=== PATIENT | female | born 1960 | race Caucasian/White ===

== ENCOUNTER 2016-12-18 08:36 | Emergency (ER) | payer OTHER, BC ==
--- NOTE | 2016-12-18 08:49 | EDM.PDOC ---
ED HPI GENERAL MEDICAL PROBLEM - General Chief Complaint: Back Pain or Injury Stated Complaint: BACK PAIN Time Seen by Provider: 12/18/16 08:59 Source of Information: Reports: Patient History Limitations: Reports: No Limitations - History of Present Illness INITIAL COMMENTS - FREE TEXT/NARRATIVE: 55-year-old female presents to the ED with acute low back pain. She has some intermittent problems with low back pain but acutely worse today. 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 She does a lot of bending over twisting and turning and no specific injury occurred in the workplace that she could identify such as a slip or fall. Pain is confined primarily to her lower back but radiates up into the upper back. It does not radiate into the SI joints but talk or down the legs. She has taken no medications for this pain this morning as she is on other meds and did wasn't sure that would mix and match. She also has a productive sounding cough for the last part of the week. No associated fever or chills. No plaque problem with her bowel or bladder control. Onset: Today, Other (Has issues with low back pain most days but much worse today) Onset Date: 12/18/16 Onset Time: 07:30 Duration: Hour(s): Location: Reports: Back (Diffuse pain low back with radiation up into the upper back on the left side as compared to the right.) Quality: Reports: Ache, Sharp, Stabbing Severity: Moderate Improves with: Reports: Rest Worsens with: Reports: Movement Context: Reports: Activity, Other (Does a lot of lifting pushing and cleaning bending over a repetitive movements in the workplace.). Denies: Exercise, Lifting, Sick Contact, Trauma Associated Symptoms: Reports: Cough, cough w sputum (Does have a productive sounding cough). 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) (Taken no medication.) - Related Data Allergies Allergy/AdvReac Type Severity Reaction Status Date / Time prednisone Allergy Tremors Verified 01/15/16 06:19 Home Meds: Home Meds Amoxicillin 875 mg PO BID #20 tab 01/15/16 [Rx] Omeprazole 20 mg PO DAILY #30 cap.cr 01/15/16 [Rx] Sucralfate [Carafate] 1 gm PO QIDACANDBED #60 tablet 01/15/16 [Rx] Diclofenac Sodium [Voltaren] 50 mg PO BIDMEALS #16 tab.ec 12/18/16 [Rx] oxyCODONE HCl/Acetaminophen [Percocet 5-325 mg Tablet] 1 - 2 each PO Q4H PRN # 20 tablet 12/18/16 [Rx] Past Medical History Respiratory History: Reports: Asthma Gastrointestinal History: Reports: Gastritis Genitourinary History: Reports: Other (See Below) Other Genitourinary History: overactive bladder 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 Denies: Fever, Chills, Weight Loss HEENT: Reports: No Symptoms, Glasses Respiratory: Reports: Shortness of Breath, Cough (On exertion), Sputum ( productive sounding cough.). Denies: Hemoptysis ( occasional sputum production. ) Cardiovascular: Reports: No Symptoms ( this is been for about a week. ) Endocrine: Reports: No Symptoms GI/Abdominal: Reports: No Symptoms : Reports: No Symptoms Musculoskeletal: Reports: Back Pain (Diffuse low back pain with radiation of pain up into the left upper back compared to the right), Other (No referred pain into the buttocks or lower extremities. ) Skin: Reports: No Symptoms ( i.e. paraspinal muscle spasm.) Neurological: Reports: No Symptoms Psychiatric: Reports: No Symptoms Hematologic/Lymphatic: Reports: Other Immunologic: Reports: No Symptoms ED EXAM,LOWER BACK PAIN/INJURY - Physical Exam Exam: See Below Exam Limited By: No Limitations General Appearance: Alert, WD/WN, Anxious, Mild Distress Throat/Mouth: Normal Inspection, Normal Lips, Normal Oropharynx Head: Atraumatic, Normocephalic Neck: Normal Inspection, Supple, Non-Tender, Full Range of Motion. No: Lymphadenopathy (L), Lymphadenopathy (R) Respiratory/Chest: No Respiratory Distress, Rhonchi. No: Decreased Breath Sounds, Wheezing (Upper anterior chest which clear with coughing.) Cardiovascular: Normal Peripheral Pulses, Regular Rate, Rhythm, No Edema, No Gallop, No Murmur Back Exam: Other (Patient has paraspinal muscle spasm particularly at L4-L5 facet joints bilaterally worse in the left as compared to the right. She also has pain up in the thoracic 678 paraspinal muscle area on the left side versus the right. This seems to be the erector spinous muscle in mild spasm. There may or may not be a rib head out in the upper back. Clinically she has acute mechanical low back pain with facet joint strain from workplace. We'll have underlying last arthritic changes likely in her back.) Extremities: Normal Inspection, Non-Tender Neurological: Alert, Normal Mood/Affect, Normal Dorsiflexion, CN II-XII Intact, Normal Plantar Flexion, Normal Reflexes, Oriented x 3, Straight Leg Raise (L), Straight Leg Raise (R) (Negative negative at 60) DTR - Lower Extremities: 0: Ankle (L) (Negative at 60) Psychiatric: Normal Affect, Normal Mood Skin Exam: Warm, Dry, Intact, Normal Color, No Rash Course - Vital Signs Last Recorded V/S: Last Vital Signs Temp 36.5 C 12/18/16 08:54 Pulse 73 12/18/16 08:54 Resp 16 12/18/16 08:54 BP 120/73 12/18/16 08:54 Pulse Ox 98 12/18/16 08:54 - Orders/Labs/Meds Meds: Medications Discontinued Medications Generic Name Dose Route Start Last Admin Trade Name Freq PRN Reason Stop Dose Admin Indomethacin 50 mg 12/18/16 09:08 12/18/16 09:22 Indocin PO 12/18/16 09:09 50 mg ONETIME ONE Administration Ondansetron HCl 4 mg 12/18/16 09:08 12/18/16 09:22 Zofran Odt PO 12/18/16 09:09 4 mg ONETIME ONE Administration Oxycodone/Acetaminophen 2 tab 12/18/16 09:08 09/17/17 09:22 Percocet 325-5 Mg PO 12/18/16 09:09 2 tab ONETIME ONE Administration - Radiology Interpretation Free Text/Narrative:: 55-year-old female presents to the ED with acute exacerbation of low back pain. Clinically she is very tender throughout the health 45 L5-S1 facet joints bilaterally worse on the left as compared to the right. There is associated mild paraspinal muscle spasm all the way up to thoracic 6 vertebra on the left side. Clinically she has suffered mechanical low back pain or facet joint strain likely from the nature of her work with a lot of bending over twisting turning and repetitive movement. She has no radiculopathy to suggest nerve root entrapment. She'll be placed on off work for the next 4 days. Advised heat to the area. Is allergic to steroids. We'll place her on Voltaren 50 mg twice daily morning and supper for the next 8 days. Percocet tabs 5/3/25 2 tablets provided in the ED with Zofran 4 mg and indomethacin 50 mg for acute pain and anti-inflammatory relief. Drugstore opens at 1:00 today and she'll build to refill prescription for further Percocet tabs 20 and (tablets. He is to follow- up with personal physician on Monday to make sure she is okay to return to work on . She has an associated productive cough without fever been present for about a week. I.e. viral bronchitis. No wheezes appreciated. She will use guaifenesin when necessary for mucus relief. Departure - Departure Time of Disposition: :09 Disposition: Home, Self-Care 01 Condition: Fair Clinical Impression: Mechanical low back pain, Acute viral bronchitis - Discharge Information Prescriptions: Diclofenac Sodium [Voltaren] 50 mg PO BIDMEALS #16 tab.ec oxyCODONE HCl/Acetaminophen [Percocet 5-325 mg Tablet] 1 - 2 each PO Q4H PRN # 20 tablet PRN Reason: pain relief. Instructions: Back Pain, Adult, [id number] Referrals: Farideh Mcdonald PA [Primary Care Provider] - Forms: ED Department Discharge, ED Return to Work/School Form Additional Instructions: Evaluation the emergency room today in regards to paroxysmal productive sounding cough i.e. bronchitis. No associated fever. No wheezing present at this time to suggest asthma. Peers to been set off by a cold and other irritants this time of year. Lungs for the most part are clear but you do have a very productive sounding cough. It is okay to take off Guafinessen to help get the mucous up out of the lung. Second problem is acute mechanical low back pain which means facet joint strain from the nature of your work with repetitive twisting turning and bending over the last few days. Mechanical low back pain identified to be worse at the L4-L5 and L5-S1 facet joints on the left versus the right lower back. Mild paraspinal muscle spasm traveling up towards the shoulder blades a little worse on the left as compared to the right. Treatment is time to heal. No work until December 22. Use anti -inflammatory Voltaren 50 mg twice daily for the next 8 days to settle down inflammation in the lower back. Unfortunately the drugstore [address] [facility] will not be open until 12:00 in his open to 4:00 this afternoon at which time developing Your medication. Take one tablet at that time. You are given indomethacin 50 mg orally in the emergency room this morning. Percocet tablets 08/03/24 one or 2 every 4-6 hours as needed for pain relief. Usually 1 with the anti-inflammatory does the job for 4-6 hours. You're given to in the emergency room and therefore you should drive straight home with plans to get into the bathtub and then into bed. Follow-up with personal doctor on Monday next week if not markedly improved.
[2016-12-18 08:56] VITALS: BP 120/73
[2016-12-18] MEDS ORDERED: Ondansetron 4 MG Tab.DIS PO ONE (09:08)
[2016-12-18] MEDS ORDERED: Indomethacin 25 MG Cap PO ONE (09:08)
[2016-12-18] MEDS ORDERED: Acetaminophen/oxyCODONE 325-5 MG Tab PO ONE (09:08)
== END 2016-12-18 09:30 | disposition home or self-care (01) ==
LOC: JD.ED 08:36
DX: M54.5 Low back pain (principal); J20.8 Acute bronchitis due to other specified organisms; J45.909 Unspecified asthma, uncomplicated; F17.210 Nicotine dependence, cigarettes, uncomplicated; Z88.5 Allergy status to narcotic agent; Z79.899 Other long term (current) drug therapy
CPT/HCPCS: 99283; A9270; 99284

== ENCOUNTER 2017-08-16 11:03 | Day surgery (SDC) | payer BC ==
--- NOTE | 2017-08-16 09:58 | PCM.PREANE ---
Preanesthetic Assessment - Anesthesia/Transfusion/Family Hx Anesthesia History: Prior Anesthesia Without Reaction Family History of Anesthesia Reaction: No Transfusion History: No Prior Transfusion(s) Intubation History: Unknown - Review of Systems General: No Symptoms Pulmonary: No Symptoms (COPD: smokes 1/2 ppd times 40 years/GEORGINA), Cough Cardiovascular: No Symptoms, Dyspnea on Exertion Gastrointestinal: No Symptoms (GERD-improved), Diarrhea, Difficulty Swallowing ( epigastric pain) Neurological: Headache (currently rated at 8/10), Tingling (right fingers) Other: Reports: Sinus Problem (allergic rhinitis), Depression, Anxiety - Physical Assessment NPO Status Date: 08/15/17 NPO Status Time: 23:00 Pulse: 73 O2 Sat by Pulse Oximetry: 98 Respiratory Rate: 16 Blood Pressure: 131/70 Temperature: 36.4 C Height: 1.55 m Weight: 60 kg ASA Class: 2 Mental Status: Alert & Oriented x3 Airway Class: Mallampati = 2 Dentition: Reports: Partial (left at home), Missing Tooth/Teeth, Caries Thyro-Mental Finger Breadths: 3 Mouth Opening Finger Breadths: 3 ROM/Head Extension: Full Lungs: Clear to Auscultation, Normal Respiratory Effort Cardiovascular: Regular Rate, Regular Rhythm, No Murmurs - Lab Values: All labs reviewed and noted and within acceptable ranges to proceed with scheduled procedure. - Allergies Allergies/Adverse Reactions: Allergies Allergy/AdvReac Type Severity Reaction Status Date / Time prednisone AdvReac Tremors Verified 08/15/17 12:20 - Anesthesia Plan Pre-Op Medication Ordered: None - Acknowledgements Anesthesia Type Planned: MAC Pt an Appropriate Candidate for the Planned Anesthesia: Yes Alternatives and Risks of Anesthesia Discussed w Pt/Guardian: Yes Pt/Guardian Understands and Agrees with Anesthesia Plan: Yes PreAnesthesia Questionnaire HEENT History: Reports: Allergic Rhinitis, Impaired Vision, Sinusitis, Other ( See Below) Other HEENT History: has partial, dry mouth Cardiovascular History: Reports: None Respiratory History: Reports: Asthma, COPD, SOB, Other (See Below) Other Respiratory History: chronic cough, snoring, bronchitis Gastrointestinal History: Reports: Chronic Diarrhea, Gastritis, GERD, Other ( See Below) Other Gastrointestinal History: anal fissure, abdominal pain, epigastric pain, dysphagia Genitourinary History: Reports: Other (See Below) Other Genitourinary History: overactive bladder 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 OB/BYN History: hysterectomy Musculoskeletal History: Reports: Other (See Below) Other Musculoskeletal History: leg pain Neurological History: Reports: None Psychiatric History: Reports: Depression, Other (See Below) Other Psychiatric History: insomnia Endocrine/Metabolic History: Reports: None Hematologic History: Reports: None Immunologic History: Reports: None Oncologic (Cancer) History: Reports: None Dermatologic History: Reports: Cellulitis, Eczema, Urticaria, Other (See Below) Other Dermatologic History: paronychia , impetigo, tinea corposis, rash - Past Surgical History Head Surgeries/Procedures: Reports: None HEENT Surgical History: Reports: Cataract Surgery Cardiovascular Surgical History: Reports: None Respiratory Surgical History: Reports: None GI Surgical History: Reports: Colonoscopy Female Surgical History: Reports: Hysterectomy, Oophorectomy, Tubal Ligation Male Surgical History: Reports: None Endocrine Surgical History: Reports: None Neurological Surgical History: Reports: None Musculoskeletal Surgical History: Reports: None Oncologic Surgical History: Reports: None - SUBSTANCE USE Smoking Status *Q: Current Every Day Smoker Recreational Drug Use History: No - HOME MEDS Home Medications: Home Meds Albuterol Sulfate [Proair Hfa] 1 - 2 puff INH Q4H PRN 08/15/17 [History] Betamethasone/Propylene Glyc [Betamethasone Dp Aug 0.05% Oin] 1 applic TOP BID 08/15/17 [History] Ca Carb/D3/Argnin/Inos/Silicon [Bone Density Calcium + D Cplt] 1 tab PO DAILY [History] [place] Butter/Phenylephrine [Preparation H] 1 dose RECTAL DAILY PRN 08/15/17 [ History] Escitalopram Oxalate 20 mg PO DAILY 08/15/17 [History] Ibuprofen 600 mg PO Q6H 08/15/17 [History] Tolterodine Tartrate [Detrol LA] 4 mg PO DAILY 08/15/17 [History] Vitamin C/Biotin [Hair, Skin and Nails Gummies] 1 tab PO DAILY 08/15/17 [History ] - CURRENT (IN HOUSE) MEDS Current Meds: Current Medications Botulinum Toxin Type A (Botox) 100 units .XX ONETIME EARNESTINE Stop: 08/16/17 13:00 Lactated Ringer's (Ringers, Lactated) 1,000 mls @ 125 mls/hr IV ASDIRECTED EARNESTINE Stop: 08/16/17 23:00 Lidocaine/Sodium Bicarbonate (Buffered Lidocaine 1% In Ns 8.4%) 0.25 ml IDERM ONETIME PRN PRN Reason: Prior to IV Start Stop: 08/16/17 18:00 Sodium Chloride (Saline Flush) 10 ml FLUSH ASDIRECTED PRN PRN Reason: Keep Vein Open Stop: 08/16/17 18:00 Discontinued Medications Fentanyl (Sublimaze) Confirm Administered Dose 100 mcg .ROUTE .STK-MED ONE Stop: 08/16/17 07:39 Lidocaine HCl (Xylocaine-Mpf 1%) Confirm Administered Dose 6 mls @ as directed .ROUTE .STK-MED ONE Stop: 08/16/17 07:39 Propofol (Diprivan 20 Ml) Confirm Administered Dose 200 mg .ROUTE .STK-MED ONE Stop: 08/16/17 07:39
[~2017-08-16 11:03] MED LIST: Lactated Ringers 1,000 ML IV SCH; Lidocaine 1% 6 ML ONE; Lidocaine 1%/Sod Bicarbonate in NS 8.4% 1 ML Syringe IDERM PRN; Propofol 200 MG/20 ML SDV ONE; Sodium Chloride 0.9% 10 ML Syringe FLUSH PRN; fentaNYL 100 MCG/2 ML SDV ONE
[2017-08-16] MEDS ORDERED: Bupivacaine 0.5% 30 ML SDV ONE (11:09)
[2017-08-16] MEDS ORDERED: Sodium Chloride 0.9% 10 ML ONE (11:09)
[2017-08-16] MEDS ORDERED: Lidocaine 1% 50 ML MDV ONE (11:09)
[2017-08-16] MEDS ORDERED: Midazolam 1 MG/ML 2 ML SDV ONE (11:43)
[2017-08-16] MEDS ORDERED: Lactated Ringers 1,000 ML ONE (12:09)
--- NOTE | 2017-08-16 12:24 | PCM.OPNOTE ---
- General Post-Op/Procedure Note Date of Surgery/Procedure: 08/16/17 Operative Procedure(s): 1. Anoscopy. 2. Botox injection about 80 units Findings: Increase internal sphincter tone but no fissure seen. There were no mass lesions or fistula or abscess. There were no hemorrhoids or complications from hemorrhoids. Pre Op Diagnosis: Pain with defecation, with a history of anal fissure Post-Op Diagnosis: Same as above Anesthesia Technique: MAC, Moderate Sedation Primary Surgeon: Sanya Hollins Pathology: None EBL in mLs: 0 Complications: None Condition: Good Free Text/Narrative:: After adequate IV sedation and analgesia was obtained the patient was placed in the prone position in preparation for the procedure. The anoscopy was performed next and was unremarkable for acute or chronic posterior as well as any anterior anal fissures. There were no hemorrhoids or fistula. There was no abscess seen. There were no mass lesions. On digital rectal examination the patient's internal sphincter tone was increased. Because of this and her history and went ahead and injected the units of Botox in the left lateral position of the internal sphincter. There was no bleeding and there were no complications. Patient had mild bronchospasm during the procedure.
--- NOTE | 2017-08-16 12:31 | PCM48HPAN ---
Post Anesthesia Note - EVALUATION WITHIN 48HRS OF ANESTHETIC Vital Signs in Normal Range: Yes Patient Participated in Evaluation: Yes Respiratory Function Stable: Yes Airway Patent: Yes Cardiovascular Function Stable: Yes Hydration Status Stable: Yes Pain Control Satisfactory: Yes Nausea and Vomiting Control Satisfactory: Yes Mental Status Recovered: Yes
[2017-08-16 13:01] VITALS: BP 103/60
== END 2017-08-16 13:00 | disposition home or self-care (01) ==
LOC: JD.SDS 11:03
PROVIDERS: ATTEND Surgery
DX: K62.89 Other specified diseases of anus and rectum (principal); Z87.19 Personal history of other diseases of the digestive system; J98.01 Acute bronchospasm; J44.9 Chronic obstructive pulmonary disease, unspecified; F17.210 Nicotine dependence, cigarettes, uncomplicated; G47.33 Obstructive sleep apnea (adult) (pediatric); F32.9 Major depressive disorder, single episode, unspecified; F41.9 Anxiety disorder, unspecified; K21.9 Gastro-esophageal reflux disease without esophagitis; Z79.899 Other long term (current) drug therapy; Z88.8 Allergy status to other drugs, medicaments and biological substances
CPT/HCPCS: 46505; J0585; J2001; J2250; J3010; J7050; J7120; 00811; J2704

== ENCOUNTER 2018-08-02 07:48 | Emergency (ER) | payer SELFPAY ==
--- NOTE | 2018-08-02 08:07 | EDM.PDOC ---
ED HPI GENERAL MEDICAL PROBLEM - General Chief Complaint: Chest Pain Stated Complaint: CHEST PAIN/TROUBLE BREATHING Time Seen by Provider: 08/02/18 08:07 Source of Information: Reports: Patient History Limitations: Reports: No Limitations - History of Present Illness INITIAL COMMENTS - FREE TEXT/NARRATIVE: 57-year-old female presents the ED with diffuse anterior chest pain which appears to have a very strong pleuritic component. She can't take a full deep breath due to the severity of the pain. She also is aware that her chest wall is sore to touch. 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 Definitive injury however. Several mild cough. She's not bringing up any sputum. Hurts too much to cough. She claims she's had some mild chills. But she is always cold. She does not feel like she caught a cold. She uses an inhaler for mild asthma symptoms and hasn't had one for several weeks. Was been off her citalopram for over a week. No new medications. Currently rates the pain as 9 out of 10 Onset: Gradual Onset Date: 08/01/18 Duration: Day(s):, Getting Worse, Waxing/Waning Location: Reports: Chest Quality: Reports: Ache, Sharp, Stabbing, Other Severity: Moderate (Strong pleuritic component to the pain rates pain as 9 out of 10) Improves with: Reports: Rest (And shallow breathing) Worsens with: Reports: Other Context: Denies: Activity (Deep breathing or coughing makes the pain much worse) , Exercise, Lifting, Sick Contact, Trauma, Other Associated Symptoms: Reports: Chest Pain, Cough (Very mild cough), Fever/Chills , Loss of Appetite, Malaise, Shortness of Breath. 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 (see below) (None.) - Related Data Allergies Allergy/AdvReac Type Severity Reaction Status Date / Time prednisone AdvReac Tremors Verified 08/15/17 12:20 Home Meds: Home Meds Albuterol Sulfate [Proair Hfa] 1 - 2 puff INH Q4H PRN 08/15/17 [History] Betamethasone/Propylene Glyc [Betamethasone Dp Aug 0.05% Oin] 1 applic TOP BID 08/15/17 [History] Escitalopram Oxalate 20 mg PO DAILY 08/15/17 [History] Ibuprofen 600 mg PO Q6H PRN 08/15/17 [History] Tolterodine Tartrate [Detrol LA] 4 mg PO DAILY 08/15/17 [History] Albuterol Sulfate [Albuterol Sulfate Hfa] 18 gm IH Q3H PRN #1 hfa.[id number].[id number] [Rx] Diclofenac Sodium [Voltaren] 50 mg PO TID #24 tab.ec 08/02/18 [Rx] Escitalopram [Lexapro] 20 mg PO DAILY #30 tab 08/02/18 [Rx] Omeprazole 40 mg PO DAILY 08/02/18 [History] Past Medical History HEENT History: Reports: Allergic Rhinitis, Impaired Vision, Sinusitis, Other ( See Below) Other HEENT History: has partial, dry mouth Cardiovascular History: Reports: None Respiratory History: Reports: Asthma, COPD, SOB, Other (See Below) Other Respiratory History: chronic cough, snoring, bronchitis Gastrointestinal History: Reports: Chronic Diarrhea, Gastritis, GERD, Other ( See Below) Other Gastrointestinal History: anal fissure, abdominal pain, epigastric pain, dysphagia Genitourinary History: Reports: Other (See Below) Other Genitourinary History: overactive bladder 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 HALL 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: hysterectomy Musculoskeletal History: Reports: Other (See Below) Other Musculoskeletal History: leg pain Neurological History: Reports: None Psychiatric History: Reports: Depression, Other (See Below) Other Psychiatric History: insomnia Endocrine/Metabolic History: Reports: None Hematologic History: Reports: None Immunologic History: Reports: None Oncologic (Cancer) History: Reports: None Dermatologic History: Reports: Cellulitis, Eczema, Urticaria, Other (See Below) Other Dermatologic History: paronychia , impetigo, tinea corposis, rash - Past Surgical History Head Surgeries/Procedures: Reports: None HEENT Surgical History: Reports: Cataract Surgery Cardiovascular Surgical History: Reports: None Respiratory Surgical History: Reports: None GI Surgical History: Reports: Colonoscopy Female Surgical History: Reports: Hysterectomy, Oophorectomy, Tubal Ligation Endocrine Surgical History: Reports: None Neurological Surgical History: Reports: None Musculoskeletal Surgical History: Reports: None Oncologic Surgical History: Reports: None Social & Family History - Tobacco Use Smoking Status *Q: Current Every Day Smoker Years of Tobacco use: 16 Packs/Tins Daily: 0.5 - Caffeine Use Caffeine Use: Reports: Coffee, Soda - Recreational Drug Use Recreational Drug Use: No - Living Situation & Occupation Living situation: Reports: Occupation: Employed ED ROS GENERAL - Review of Systems Review Of Systems: See Below Constitutional: Reports: Fever, Chills, Malaise, Weakness, Fatigue, Decreased Appetite HEENT: Reports: No Symptoms Respiratory: Reports: Shortness of Breath, Wheezing, Pleuritic Chest Pain, Cough. Denies: Sputum, Hemoptysis Cardiovascular: Reports: Chest Pain, Blood Pressure Problem (A pressure is markedly elevated at time of initial exam at 174/109.), Dyspnea on Exertion. Denies: Claudication, Edema, Lightheadedness, Orthopnea ( She is not normally hypertensive), Palpitations Endocrine: Reports: No Symptoms GI/Abdominal: Reports: Decreased Appetite : Reports: No Symptoms Musculoskeletal: Reports: Other Skin: Reports: No Symptoms (Denies is there is a component of chest wall pain is worse she can push on her chest and make it sore.) Neurological: Reports: No Symptoms Psychiatric: Reports: No Symptoms Hematologic/Lymphatic: Reports: No Symptoms ED EXAM, GENERAL - Physical Exam Exam: See Below Exam Limited By: No Limitations General Appearance: Alert, WD/WN, Anxious, Moderate Distress, Other (Vital signs show she is hypertensive 174/109 sats are 100% with a respiratory of 16. Temperature recorded by nurses 36.5 although she feels slightly warmer than this by palpation.) Eye Exam: Bilateral Eye: Normal Inspection Throat/Mouth: Normal Inspection, Normal Lips, Normal Teeth, Normal Oropharynx Head: Atraumatic, Normocephalic Neck: Normal Inspection, Supple, Non-Tender. No: Lymphadenopathy (L), Lymphadenopathy (R) Respiratory/Chest: No Respiratory Distress, No Accessory Muscle Use, Decreased Breath Sounds, Wheezing (Diffuse very faint expiratory wheezing bilaterally.), Splinting (She is splinting and unable take a full deep breath therefore decreased air entry to both lower lung kaplan but 20%). No: Lungs Clear, Normal Breath Sounds Cardiovascular: Normal Peripheral Pulses, Regular Rate, Rhythm, No Edema, No Gallop, No Murmur, No Rub Peripheral Pulses: 0: Dorsalis Pedis (R), 3+: Posterior Tibial (L), Posterior Tibial (R), Dorsalis Pedis (L) GI/Abdominal: Normal Bowel Sounds, Soft, Non-Tender, No Organomegaly, No Abnormal Bruit, No Mass, Pelvis Stable Back Exam: Normal Inspection, Full Range of Motion. No: CVA Tenderness (L), CVA Tenderness (R) Extremities: Normal Inspection, Normal Range of Motion, Non-Tender, No Pedal Edema, Normal Capillary Refill, Other Neurological: Alert (No swelling of either lower extremity to suggest DVT), Oriented, CN II-XII Intact, Normal Cognition Psychiatric: Anxious, Other Skin Exam: Warm, Dry (Appears to be in a good deal of pain.), Intact, Normal Color, No Rash EKG INTERPRETATION EKG Date: 08/02/18 Time: 08:05 Rhythm: NSR Rate (Beats/Min): 80 [place]: Normal P-Wave: Present QRS: Other (Mildly decreased voltage precordial leads.) ST-T: Normal QT: Normal EKG Interpretation Comments: Essentially normal ECG no signs of ischemia. Course - Vital Signs Last Recorded V/S: Last Vital Signs Temp 36.5 C 08/02/18 07:53 Pulse 86 08/02/18 07:53 Resp 16 08/02/18 07:53 BP 174/109 H 08/02/18 07:53 Pulse Ox 100 08/02/18 08:36 - Orders/Labs/Meds Orders: Active Orders 24 hr Category Date Time Status EKG Documentation Completion [RC] STAT Care 08/02/18 08:21 Active RT Aerosol Therapy [RC] ASDIRECTED Care 08/02/18 08:21 Active CULTURE BLOOD [BC] Stat Lab 08/02/18 08:42 Received CULTURE BLOOD [BC] Stat Lab 08/02/18 08:57 Received MYCOPLASMA PNEUMONIAE IGM AB [CHEM] Stat Lab 08/02/18 08:01 Received Dextrose 5%-0.9% NaCl [Dextrose 5%-Normal Saline] 1,000 Med 08/02/18 08:30 Active ml IV ASDIRECTED Ketorolac [Toradol] Med 08/02/18 10:00 Active 30 mg IVPUSH ONETIME Blood Culture x2 Reflex Set [OM.PC] Stat Oth 08/02/18 08:20 Ordered Medication Orders Dextrose/Sodium Chloride (Dextrose 5%-Normal Saline) 1,000 mls @ 500 mls/hr IV ASDIRECTED EARNESTINE Last Admin: 08/02/18 08:27 Dose: 500 mls/hr Ketorolac Tromethamine (Toradol) 30 mg IVPUSH ONETIME [facility] Labs: Laboratory Tests 08/02/18 08/02/18 08/02/18 Range/Units 08:01 08:01 08:01 WBC 4.97 (3.98-10.04) K/mm3 RBC 4.81 (3.98-5.22) M/mm3 Hgb 13.8 (11.2-15.7) gm/L Hct 42.1 (34.1-44.9) % MCV 87.5 (79.4-94.8) fl MCH 28.7 (25.6-32.2) pg MCHC 32.8 (32.2-35.5) g/dl RDW Std Deviation 40.9 (36.4-46.3) fL Plt Count 275 (182-369) K/mm3 MPV 11.7 (9.4-12.3) fl Neutrophils % (Manual) 59 (40-60) % Band Neutrophils % 0 (0-10) % Lymphocytes % (Manual) 28 (20-40) % Atypical Lymphs % 0 % Monocytes % (Manual) 7 (2-10) % Eosinophils % (Manual) 5 (0.7-5.8) % Basophils % (Manual) 1 (0.1-1.2) Platelet Estimate Adequate RBC Morph Comment Normal PT 9.8 (9.5-12.1) SECONDS INR < 0.93 APTT 27 (24-31) SECONDS D-Dimer, Quantitative 0.38 (0.19-0.50) mg/L Sodium 145 (136-145) mEq/L Potassium 3.9 (3.5-5.1) mEq/L Chloride 109 H (98-107) mEq/L Carbon Dioxide 25 (21-32) mEq/L Anion Gap 14.9 (5-15) BUN 7 (7-18) mg/dL Creatinine 0.8 (0.55-1.02) mg/dL Est Cr Clr Drug Dosing 57.07 mL/min Estimated GFR (MDRD) > 60 (>60) mL/min BUN/Creatinine Ratio 8.8 L (14-18) Glucose 99 (74-106) mg/dL Calcium 9.2 (8.5-10.1) mg/dL Total Bilirubin 0.9 (0.2-1.0) mg/dL AST 21 (15-37) U/L ALT 46 (14-59) U/L Alkaline Phosphatase 98 (46-116) U/L CK-MB (CK-2) 1.8 (0-3.6) ng/ml Troponin I < 0.017 (0.00-0.056) ng/mL C-Reactive Protein < 0.2 (<1.0) mg/dL Total Protein 7.3 (6.4-8.2) g/dl Albumin 4.1 (3.4-5.0) g/dl Globulin 3.2 gm/dL Albumin/Globulin Ratio 1.3 (1-2) Meds: Medications Generic Name Dose Route Start Last Admin Trade Name Freq PRN Reason Stop Dose Admin Dextrose/Sodium Chloride 1,000 mls @ 500 mls/hr 08/02/18 08:30 08/02/18 08:27 Dextrose 5%-Normal Saline IV 500 mls/hr ASDIRECTED EARNESTINE Administration Ketorolac Tromethamine 30 mg 08/02/18 10:00 Toradol IVPUSH ONETIME EARNESTINE Discontinued Medications Generic Name Dose Route Start Last Admin Trade Name Freq PRN Reason Stop Dose Admin Albuterol/Ipratropium 3 ml 08/02/18 08:20 08/02/18 08:35 Duoneb 3.0-0.5 Mg/3 Ml NEB 08/02/18 08:21 3 ml ONETIME ONE Administration Hydromorphone HCl 1 mg 08/02/18 08:18 08/02/18 08:30 Dilaudid IVPUSH 08/02/18 08:19 1 mg ONETIME ONE Administration Ondansetron HCl 4 mg 08/02/18 08:19 08/02/18 08:29 Zofran IVPUSH 08/02/18 08:20 4 mg ONETIME ONE Administration - Radiology Interpretation Free Text/Narrative:: 57-year-old female presents to the ED with diffuse central chest pain that radiates across both upper anterior chest. 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 She is febrile does have a mild cough. She smokes usually a half pack to pack per day. She claims that she's had some chills the last day or so. Pain is strongly pleuritic and she can't take a full deep breath. No recent travel history and no history of DVT. Pain is currently rated as a 9 out of 10. ECG shows sinus rhythm at 81 per minute with no signs of ischemia. She's been out of her inhaler for several days. She uses for mild asthma. Plan she does feel mildly warm to palpation. She will therefore have routine labs including blood cultures 2. IV will be D5 normal saline at 500 mils per hour. Will be given Dilaudid 1 mg IV with Reglan 7.5 mg IV. Routine labs including d-dimer to be done and cardiac markers. One view chest x-ray to be done. Influenza screen a mycoplasma titer will also be obtained - Re-Assessments/Exams Free Text/Narrative Re-Assessment/Exam: 08/02/18 09:10 Portable chest x-ray suggests mild haziness in the right lower lobe of the lung. No consolidation to suggest suggest pneumonia. Cardiac silhouette is normal.White count is 4.97 with 59% neutrophils and 0% bands. Hemoglobin is 13.8 with hematocrit of 42.1. PT is 9.8 with an INR of less than 0.93. PTT is 27 d-dimer is 0.38 08/02/18 09:46 Sodium 145 with a potassium of 3.9. Chloride was 109 with a bicarbonate 25. Anion gap is 14.9. Glucose is 99 calcium is 9.2. Liver function normal. CK-MB fraction is 1.8 with a troponin I of less than 0.017. C-reactive protein is less than 0.2. 08/02/18 09:52: Patient feels she somewhat better after the DuoNeb. Still hurts to breathe deeply. Will give her Toradol 30 mg IV. Of note she reports she's allergic to prednisone. Influenza screen is pending .She seems to be developing chills. 08/02/18 10:15 Influenza screen is negative. Patient appears to be developing some form of viral upper respiratory tract infection with pleurisy. I will place her on Voltaren 50 mg 3 times daily to relieve pain and inflammation. She will be off work for the next 4 days. Departure - Departure Time of Disposition: 10:24 Disposition: Home, Self-Care 01 Condition: Fair Clinical Impression: Pleuritic chest pain, Viral upper respiratory tract infection Prescriptions: Albuterol Sulfate [Albuterol Sulfate Hfa] 18 gm IH Q3H PRN #1 hfa.aer.ad PRN Reason: Wheezing shortness of breath/ Diclofenac Sodium [Voltaren] 50 mg PO TID #24 tab.ec Escitalopram [Lexapro] 20 mg PO DAILY #30 tab Referrals: PCP,None [Primary Care Provider] - Forms: ED Department Discharge, ED Return to Work/School Form Additional Instructions: Evaluation the emergency room this morning in regards to development of pleuritic anterior chest pain. This means there is an inflammation of the lining of your lung which is aggravated by deep breathing or coughing. Chest wall is also somewhat sore to touch likely related to work related duties. However when you first presented to the ED you did have bilateral mild wheezing. Chest x-ray is negative for any obvious pneumonia. Clinically you are developing a viral bronchitis. Lab work shows no signs of blood clot in the long and no problems with your heart. Treatment is Voltaren 50 mg 3 times daily for the next 8 days. The first tablet is due approximately 2:00 this afternoon. May use pro-air inhaler-2 puffs every 3 hours as needed for relief of wheezing and shortness of breath. You need to be off work for the next 4 days to allow the inflammation to settle down. I have refilled your escitalopram 20 mg tablet once daily as well. Follow-up with personal doctor if not markedly improved in 4 days time - My Orders Last 24 Hours: My Active Orders 08/02/18 08:01 MYCOPLASMA PNEUMONIAE IGM AB [CHEM] Stat 08/02/18 08:20 Blood Culture x2 Reflex Set [OM.PC] Stat 08/02/18 08:21 EKG Documentation Completion [RC] STAT RT Aerosol Therapy [RC] ASDIRECTED 08/02/18 08:30 Dextrose 5%-0.9% NaCl [Dextrose 5%-Normal Saline] 1,000 ml IV ASDIRECTED 08/02/18 08:42 CULTURE BLOOD [BC] Stat 08/02/18 08:57 CULTURE BLOOD [BC] Stat 08/02/18 10:00 Ketorolac [Toradol] 30 mg IVPUSH ONETIME - Assessment/Plan Last 24 Hours: My Active Orders 08/02/18 08:01 MYCOPLASMA PNEUMONIAE IGM AB [CHEM] Stat 08/02/18 08:20 Blood Culture x2 Reflex Set [OM.PC] Stat 08/02/18 08:21 EKG Documentation Completion [RC] STAT RT Aerosol Therapy [RC] ASDIRECTED 08/02/18 08:30 Dextrose 5%-0.9% NaCl [Dextrose 5%-Normal Saline] 1,000 ml IV ASDIRECTED 08/02/18 08:42 CULTURE BLOOD [BC] Stat 08/02/18 08:57 CULTURE BLOOD [BC] Stat 08/02/18 10:00 Ketorolac [Toradol] 30 mg IVPUSH ONETIME
[2018-08-02] MEDS ORDERED: HYDROmorphone 1 MG/ML Syringe IVPUSH ONE (08:18)
[2018-08-02] MEDS ORDERED: Ondansetron 4 MG/2 ML SDV IVPUSH ONE (08:19)
[2018-08-02] MEDS ORDERED: Albuterol/Ipratropium 3.0-0.5 MG/3 ML Neb Soln NEB ONE (08:20)
[2018-08-02] MEDS ORDERED: Dextrose 5%-0.9% NaCl 1,000 ML IV SCH (08:30)
--- NOTE | 2018-08-02 09:03 | CR ---
Chest: Portable view of the chest was obtained. Comparison: Prior chest x-ray of 02/20/18. Heart size and mediastinum are normal. Lungs are clear with no acute parenchymal change. Bony structures are grossly intact. Impression: 1. Nothing acute is appreciated on portable chest x-ray. Diagnostic code #1
[2018-08-02] MEDS ORDERED: Ketorolac 30 MG/ML SDV IVPUSH SCH (10:00)
[2018-08-02 11:01] VITALS: BP 118/71
== END 2018-08-02 10:45 | disposition home or self-care (01) ==
LOC: JD.ED 07:48
DX: J06.9 Acute upper respiratory infection, unspecified (principal); R07.81 Pleurodynia; F17.210 Nicotine dependence, cigarettes, uncomplicated; F32.9 Major depressive disorder, single episode, unspecified; Z79.899 Other long term (current) drug therapy; Z88.8 Allergy status to other drugs, medicaments and biological substances
CPT/HCPCS: 36415; 71045; 80053; 82553; 84484; 85007; 85027; 85379; 85610; 85730; 86140; 86738; 87040; 87804; 93005; 94640; 96361; 96374; 96375; 99285; J1170; J2405; J7042; 93010; J7620-GY

== ENCOUNTER 2021-05-27 08:42 | Emergency (ER) | payer OTHER ==
[2021-05-27 08:57] VITALS: BP 141/76; PULSE 79
== END 2021-05-27 09:43 | disposition home or self-care (01) ==
LOC: JD.ED 08:42
DX: H11.32 Conjunctival hemorrhage, left eye (principal); J44.9 Chronic obstructive pulmonary disease, unspecified; K21.9 Gastro-esophageal reflux disease without esophagitis; Z88.8 Allergy status to other drugs, medicaments and biological substances; Z79.899 Other long term (current) drug therapy; Z72.0 Tobacco use
CPT/HCPCS: 99282

== ENCOUNTER 2025-02-12 09:08 | Emergency (ER) | payer OTHER ==
[2025-02-12] MEDS ORDERED: Sodium Chloride 0.9% 10 ML Syringe FLUSH PRN (09:59)
[2025-02-12 10:20] LABS: BASOPHILS ABSOLUTE AUTO 0.0 K/mm3 (0.0-0.2); BASOPHILS PERCENT AUTO 0.7 % (0.0-1.0); EOSINOPHILS ABSOLUTE AUTO 0.1 K/mm3 (0.0-0.4); EOSINOPHILS PERCENT AUTO 1.1 % (0.0-6.0); IMMATURE GRAN ABSOLUTE AUTO 0.02 K/mm3 (0.00-0.05); IMMATURE GRAN PERCENT AUTO 0.4 % (0.0-0.4); LYMPHOCYTES ABSOLUTE AUTO 1.2 K/mm3 (1.0-4.8); LYMPHOCYTES PERCENT AUTO 21.0 % (24.0-44.0); MEAN PLATELET VOLUME 11.2 fl (9.4-12.3); MONOCYTES ABSOLUTE AUTO 0.4 K/mm3 (0.0-0.8); MONOCYTES PERCENT AUTO 6.4 % (0.0-8.0); NEUTROPHILS ABSOLUTE AUTO 4.0 K/mm3 (1.8-7.7); NEUTROPHILS PERCENT AUTO 70.4 % (41.0-71.0); NRBC ABSOLUTE 0.00 (0.00-0.02); NRBC PERCENT 0.0 % (0.0-0.2); PLATELET COUNT,PLT 219 K/mm3 (150-400); RED BLOOD CELL COUNT 4.71 M/mm3 (4.10-5.30); WHITE BLOOD CELL COUNT,WBC 5.66 K/mm3 (3.9-11.3)
[2025-02-12] MEDS: Sodium Chloride 0.9% 10 ML Syringe FLUSH ONE (10:21)
[2025-02-12] MEDS: Iopamidol 612 MG/ML 100 ML Bottle IVPUSH ONE (10:21)
[2025-02-12 10:22] LABS: APPEARANCE,URINE CLEAR (Clear); GLUCOSE,URINE NEGATIVE (Negative); OCCULT BLOOD,URINE 1+ (Negative)
[2025-02-12 11:05] LABS: A/G RATIO 1.2 (1-2); ALANINE AMINOTRANSFERASE,ALT 27.0 U/L (14-59); ASPARTATE AMNIOTRANSFERASE,AST 21.0 U/L (15-37); BILIRUBIN TOTAL 0.7 mg/dL (0.2-1.0); BLOOD UREA NITROGEN,BUN 8.0 mg/dL (7-18); CARBON DIOXIDE,CO2 26.0 mEq/L (21-32); CHLORIDE,CL 111.0 mEq/L (98-107); CREATININE 0.7 mg/dL (0.55-1.02); EST CRCL DRUG DOSING (CG) 59.85 mL/min; ESTIMATED GFR 98.0 mL/min (>60); GLUCOSE RANDOM 103.0 mg/dL (70-99); POTASSIUM,K 4.4 mEq/L (3.5-5.1); PROTEIN TOTAL,TP 7.0 g/dl (6.4-8.2); SODIUM,NA 146.0 mEq/L (136-145); TROPONIN I HIGH SENSITIVITY 13.0 pg/mL (<=51)
[2025-02-12 11:10] LABS: SQUAMOUS EPITHELIAL CELLS,UR 0-5 /hpf (0-5)
[2025-02-12 14:03] VITALS: BP 131/77; PULSE 74
== END 2025-02-12 13:56 | disposition home or self-care (01) ==
LOC: JD.ED 09:08
DX: R10.A2 Flank pain, left side (principal); R51.9 Headache, unspecified; E87.0 Hyperosmolality and hypernatremia; J44.89 Other specified chronic obstructive pulmonary disease; K21.9 Gastro-esophageal reflux disease without esophagitis; Z90.710 Acquired absence of both cervix and uterus; Z88.8 Allergy status to other drugs, medicaments and biological substances; Z79.899 Other long term (current) drug therapy; V49.49XA Driver injured in collision with other motor vehicles in traffic accident, initial encounter
CPT/HCPCS: 36415; 71045; 74177; 80053; 81001; 83690; 83735; 84484; 85025; 93005; 99284; Q9967